=== PATIENT | female | born 1960 | race Caucasian/White ===

== ENCOUNTER 2017-04-01 09:55 | Outpatient (CLI) | payer BC, OTHER ==
--- NOTE | 2017-04-01 14:24 | MMO ---
BILATERAL SCREENING MAMMOGRAM: INDICATION: Annual exam. COMPARISON: Prior exam dated 11/13/14 and 12/24/15. FINDINGS: The interpretation of this exam was assisted with computer-aided detection. Breast parenchyma demonstrates scattered fibroglandular elements. There are benign-appearing calcifications within the right and left breast. No new suspicious mass, cluster of microcalcifications, or area of architectural distortion is eviden t. IMPRESSION: BI-RADS category 2 - benign. Recommend routine annual mammographic screening. POS: [facility]
== END 2017-04-01 09:56 | disposition home or self-care (01) ==
LOC: SCSMAMMO 09:55
PROVIDERS: ATTEND Family Medicine
DX: Z12.31 Encounter for screening mammogram for malignant neoplasm of breast (principal)
CPT/HCPCS: 77067; G0202

== ENCOUNTER 2017-09-26 13:57 | Outpatient (CLI) | payer BC, OTHER | END 2017-09-26 13:58 | disposition home or self-care (01) | LOC: CTENTCT 13:57 | PROVIDERS: ATTEND Otolaryngology Plastic Surgery within the Head & Neck | DX: J01.91 Acute recurrent sinusitis, unspecified (principal) | CPT/HCPCS: 70486 ==

== ENCOUNTER 2017-11-11 07:55 | Outpatient (CLI) | payer BC, OTHER ==
--- NOTE | 2017-11-11 10:24 | MRI ---
MRI OF THE RIGHT THUMB WITHOUT IV CONTRAST: INDICATION: Concern for UCL injury of the right thumb. Right thumb pain for 2 months; right thumb injury while l ifting a grandchild. FINDINGS: There is a full-thickness disruption of the proximal attachment of the thumb metacarpal phalangeal ul demar collateral ligament on image 4 of series 10. The UCL ligament appears to be in the expected posi tion just slightly proximal and subjacent to the adductor pollicis tendon. No osteochondral lesion i s evident. There is a mild subchondral cyst-like abnormality involving the base of the thumb metacar pal. The flexor and extensor tendons to the left thumb appear within normal limits. The thenar musc ulature appears within normal limits. IMPRESSION: Grade 3 sprain of the proximal attachment of the ulnar collateral ligament of the thumb metacarpal ph alangeal joint without evidence of displacement of the torn ligament. POS: [facility]
== END 2017-11-11 07:56 | disposition home or self-care (01) ==
LOC: SCSMRI 07:55
PROVIDERS: ATTEND Orthopaedic Surgery Hand Surgery
DX: S63.641A Sprain of metacarpophalangeal joint of right thumb, initial encounter (principal)

== ENCOUNTER → 2017-12-14 | Outpatient (CLI) | payer BC, OTHER ==
[2017-12-14 11:28] LABS: #Eosinphils 0.1 thou/uL (0.0-0.7); #Lymphocytes 1.9 thou/uL (1.20-3.40); #Monocytes 0.5 thou/uL (0.11-0.59); #Neutrophils 4.6 thou/uL (1.40-6.50); %Basophils 0.6 % (0.0-1.0); %Lymphocytes 26.4 % (21.0-51.0); %Monocytes 7.3 % (0.0-10.0); %Neutrophils 64.7 % (42.0-75.0); Hemoglobin 14.4 g/dL (12.0-16.0); Mean Corpuscular HGB CONC 34.2 g/dL (32.0-36.0); Mean Corpuscular Hemoglobin 31.8 pg (27.0-31.0); Platelet Count 206 thou/uL (130-400); RBC Distribution Width 10.7 % (11.5-14.5); Red Blood Cell (RBC) Count 4.53 mill/uL (4.20-5.40)
[2017-12-14 11:53] LABS: Anion Gap 8 mmol/L (10-20); BUN (Urea Nitrogen) 13 mg/dL (9.8-20.1); Calc. Creatinine Clearance 0 mL/min (70-130); Calcium 9.3 mg/dL (7.8-10.44); Carbon Dioxide 32 mmol/L (22-29); Chloride 101 mmol/L (98-107); Estimated GFR-MDRD 73; Glucose 107 mg/dL (70-105); Potassium 3.3 mmol/L (3.5-5.1); Sodium 138 mmol/L (136-145)
--- NOTE | 2017-12-16 15:07 | EKG ---
Test Reason : Blood Pressure : / mmHG Vent. Rate : 065 BPM Atrial Rate : 065 BPM P-R Int : 198 ms QRS Dur : 092 ms QT Int : 446 ms P-R-T Axes : 048 003 007 degrees QTc Int : 463 ms Normal sinus rhythm Low voltage QRS Nonspecific T wave abnormality Prolonged QT Abnormal ECG When compared with ECG of 06-OCT-2015 14:28, No significant change was found Confirmed by JEEVAN WELSH, DERRICK ([id number]) on 12/16/2017 3:07:24 PM Referred By: NANETTE Confirmed By:DERRICK CHEW MD
== END ==
LOC: LABBT 11:00
PROVIDERS: ATTEND Orthopaedic Surgery Hand Surgery
DX: Z01.818 Encounter for other preprocedural examination (principal); S63.641A Sprain of metacarpophalangeal joint of right thumb, initial encounter
CPT/HCPCS: 80048; 85025; 93005; 93010

== ENCOUNTER 2018-01-05 11:40 | Outpatient (CLI) | payer BC, OTHER ==
--- NOTE | 2018-01-05 12:20 | RAD ---
LUMBAR SPINE 4 VIEWS: HISTORY: M99.83, lumbar foraminal stenosis. COMPARISON: Lumbar spine radiograph 2016. FINDINGS: There is moderate levoscoliosis, progressive from the comparison examination. Moderate facet arthrop athy of L4-5 and L5-S1. No acute fracture or malalignment. No significant listhesis with flexion or extension. IMPRESSION: Progressive levoscoliosis. POS: [facility]
--- NOTE | 2018-01-05 13:07 | MRI ---
MRI LUMBAR SPINE WITHOUT CONTRAST: HISTORY: M99.83, lumbar foraminal stenosis. Low back pain. COMPARISON: Lumbar spine radiographs of the same day. FINDINGS: Aortic contour is nonaneurysmal. No retroperitoneal adenopathy is appreciated. Paraspinal musculatu re is symmetric. No hydronephrosis. No marrow infiltrative process. There is hemangioma in the L3 and L1 vertebral bodies. The conus medullaris terminates near the L1 vertebral body. The axial images are limited due to motion artifact. Levels are as follows: T12-L1: Circumferential disk bulge. No significant neural foraminal or spinal canal narrowing. L1-2: There is a central small disk-osteophyte complex with minimal effacement of the ventral CSF sp deny. The spinal canal is not significantly narrowed. No neural foraminal narrowing. L2-3: Small bilateral subforaminal posterior disk-osteophyte complexes, larger on the left. Mild fa cet arthropathy. There is moderate left-sided neural foraminal narrowing. No significant right-side d neural foraminal narrowing. The spinal canal is not significantly narrowed. L3-4: There is a broad-based posterior disk bulge with accompanying bilateral subforaminal posterior disk-osteophyte complexes, larger on the right. This causes moderate right and mild left-sided neur al foraminal narrowing. Abutment of the exiting right and traversing nerve roots. L4-5: Mild disk desiccation. Broad-based posterior disk-osteophyte complex predominantly within the central right paracentral lateral recess and subforaminal zones. This causes moderate right-sided n eural foraminal narrowing. Hypertrophic facet changes cause mild left-side neural foraminal narrowi ng. L5-S1: There is a circumferential disk bulge with superimposed central annular fissure. Posterior d isk-osteophyte complex on the left subforaminal and lateral recess with accompanying moderate to stefanie re arthropathy causes moderate to severe left-sided neural foraminal narrowing with abutment of the e xiting and traversing nerve roots. No significant right-sided neural foraminal narrowing. IMPRESSION: Moderate spondylosis as described above. POS: [facility]
== END 2018-01-05 11:41 | disposition home or self-care (01) ==
LOC: SCSMRI 11:40
PROVIDERS: ATTEND Specialist
DX: M99.83 Other biomechanical lesions of lumbar region (principal); M41.9 Scoliosis, unspecified; M51.26 Other intervertebral disc displacement, lumbar region; M51.27 Other intervertebral disc displacement, lumbosacral region; M47.896 Other spondylosis, lumbar region; M47.897 Other spondylosis, lumbosacral region
CPT/HCPCS: 72110; 72148

== ENCOUNTER 2018-01-27 09:06 | Day surgery (SDC) | payer BC, OTHER ==
[2018-01-26 09:08] VITALS: BMI 45.4
[2018-01-27] MEDS ORDERED: Bupivacaine HCl 0.5%/Epinephrine 1:200,000/PF 30 ml Vial ONE (09:47)
[2018-01-27] MEDS ORDERED: Betamet Acet/Betamet Na Ph 30 MG/5 ML VIAL ONE (09:56)
[2018-01-27] MEDS ORDERED: Bacitracin Zinc Ointment 30 gm TUBE ONE (09:56)
[2018-01-27] MEDS ORDERED: Bupivacaine PF 0.5% 30 ML VIAL ONE (09:56)
[2018-01-27] MEDS ORDERED: Midazolam HCl 2 mg/2 ml Vial ONE ×2 (10:08→10:35)
[2018-01-27] MEDS ORDERED: CEFAZOLIN/Water 2 GM/20 ML SYRINGE ONE (10:08)
[2018-01-27] MEDS ORDERED: Ondansetron HCl/PF 4 MG/2 ML Vial ONE (10:18)
[2018-01-27] MEDS ORDERED: Dexamethasone 20 MG/5 ML VIAL ONE (10:18)
[2018-01-27] MEDS ORDERED: Succinylcholine Chloride 20 MG/ML 10 ml SYRINGE FS ONE (10:18)
[2018-01-27] MEDS ORDERED: Lidocaine 1% PF 5 ML VIAL ONE (10:18)
[2018-01-27] MEDS ORDERED: PROPOFOL 200 MG/20 ML VIAL ONE (10:18)
[2018-01-27] MEDS ORDERED: Ketorolac Tromethamine 30 MG/ML VIAL ONE ×2 (10:18→13:13)
[2018-01-27] MEDS ORDERED: ePHEDrine/0.9% NaCl/PF SYRINGE 50 mg/10 ml ONE (10:18)
[2018-01-27 10:46] LABS: #Basophils 0.1 thou/uL (0.0-0.2); #Eosinphils 0.1 thou/uL (0.0-0.7); #Lymphocytes 1.9 thou/uL (1.20-3.40); #Monocytes 0.5 thou/uL (0.11-0.59); #Neutrophils 4.7 thou/uL (1.40-6.50); %Basophils 0.8 % (0.0-1.0); %Eosinophils 0.9 % (0.0-10.0); %Lymphocytes 26.4 % (21.0-51.0); %Monocytes 6.4 % (0.0-10.0); %Neutrophils 65.4 % (42.0-75.0); Hemoglobin 15.6 g/dL (12.0-16.0); Mean Corpuscular HGB CONC 33.8 g/dL (32.0-36.0); Mean Corpuscular Hemoglobin 31.5 pg (27.0-31.0); Mean Corpuscular Volume 93.3 fL (78.0-98.0); Mean Platelet Volume 8.9 fL (7.4-10.4); Platelet Count 231 thou/uL (130-400); RBC Distribution Width 11.1 % (11.5-14.5); Red Blood Cell (RBC) Count 4.95 mill/uL (4.20-5.40); White Blood Cell (WBC) Count 7.2 thou/uL (4.8-10.8)
[2018-01-27] MEDS ORDERED: Famotidine/PF 20 mg/2ml Vial ONE (10:56)
[2018-01-27] MEDS ORDERED: Fentanyl 100 MCG/2 ML VIAL ONE (10:56)
[2018-01-27 11:02] LABS: Anion Gap 13 mmol/L (10-20); BUN (Urea Nitrogen) 15 mg/dL (9.8-20.1); Calc. Creatinine Clearance 141 mL/min (70-130); Carbon Dioxide 29 mmol/L (22-29); Chloride 102 mmol/L (98-107); Estimated GFR-MDRD 64; Glucose 96 mg/dL (70-105); Potassium 3.7 mmol/L (3.5-5.1); Sodium 140 mmol/L (136-145)
--- NOTE | 2018-01-27 13:53 | RAD ---
RIGHT THUMB 4 VIEWS: INDICATION: Right thumb collateral ligament reconstruction. FINDINGS: Intraoperative fluoroscopic imaging for surgical purposes of the right thumb performed. Correlate wi th intraoperative findings for details as evaluation is limited on the provided views. K-wire overli es the 1st MCP joint and thee is an adjacent radiopaque anchor. Surgical needle overlies the dorsal aspect of the hand on one of the provided lateral views. IMPRESSION: Intraoperative imaging for surgical procedure of the right thumb. POS: [facility]
--- NOTE | 2018-01-31 10:04 | OP ---
DATE OF PROCEDURE: 01/27/2018 SURGEON: Zane Seo MD PREOPERATIVE DIAGNOSES: Left ulnar collateral ligament proximal tear of bone. FINDINGS: Indeed proximal to the tear. There was a complete attenuation with a 2-mm scar band makin g the tendon incompetent and it was stripped partially off of the bone proximally. It was no loss of continuity distally across the joint. No Stener lesion was seen. PROCEDURES PERFORMED OF THUMB: 1. Arthrotomy of the metacarpophalangeal joint. 2. Ulnar collateral reconstruction. 3. C-arm supervision with pinning of joint. 4. Left shortarm splint application. TOURNIQUET TIME: 65 minutes. BLOOD LOSS: 10 mL INJECTABLE: The patient had general with a block. There was excellent axillary block. DESCRIPTION OF PROCEDURE: After successful general LMA technique, the limb was prepped and draped. The patient had the limb exsanguinated. Time out was done. Appropriate tourniquet was inflated to 2 50 mmHg pressure. A lazy J incision was then made beginning in dorsal on the metacarpal head and nec k junction and then coursing approximately to the midline and mid lateral plane looking at the thumb from the ulnar aspect at the MP joint and distal. This was carried through the skin and subcutaneous tissue, visualized dorsal to the incision. The branches of the superficial ulnar nerve and protecte d them. Then, we gently released the retinaculum connecting the abductor to the extensor pollicis lo ngus tendon because there was no defect here. Underneath this and medially, we saw an area of white tissue about 2 mm in width throughout the entire area of the ulnar collateral ligament and this area was totally incompetent. It was approximately 5 mm proximal to the metacarpophalangeal opening/cauda l surface of the metacarpal neck. Distal to this, the insertion was intact and gave excellent tensio n, so we resected this area. We then elected to perform a [id number] repair, but first we took the distal portion and put in a trough in bone, that was approximately a 3-mm deep using a mini Mitek anchor. Then, this will coapt the distal portion into the bone at the proximal aspects of neck and before we tied it; however, we placed on both sides of it dorsal and palmar 2 [id number] sutures with the proximal stump being sutured exiting deep and the distal portion of the suture exiting supe rficial. We then placed him in the appropriate position and then, pinned the joint in 30 degrees of flexion with approximately 20 degrees of radial, and angular deformity to relax the repair. Th en, once the pin was in place, we sutured the repairs to maintain the reduction in the somewhat gait stability. We then cut the sutures to include anchor sutures. There was no loss of continuity. The patient had excellent repair. We obtained hemostasis. We closed the retinaculum connecting the extensor pollicis longus with the a bductor pollicis sheath using the appropriate suture. Then, the epidurals were approximated with 4-0 nylon in interrupted mattress pattern. Bulky dressing was applied just after the wire was cut and b ent with 2 mm protruding at a right-angle. C-arm confirmed good position. The patient left the oper ating room without evidence of anesthetic or operative complications.
== END 2018-01-27 15:45 | disposition home or self-care (01) ==
LOC: SDC 09:06
PROVIDERS: ATTEND Orthopaedic Surgery Hand Surgery
PROC: 0MQ70ZZ Repair Right Hand Bursa and Ligament, Open Approach (ICD-10-PCS; principal; 2018-01-27)
DX: S63.641A Sprain of metacarpophalangeal joint of right thumb, initial encounter (principal); F32.9 Major depressive disorder, single episode, unspecified; E78.5 Hyperlipidemia, unspecified; Z79.899 Other long term (current) drug therapy; Z88.5 Allergy status to narcotic agent; Z91.048 Other nonmedicinal substance allergy status
CPT/HCPCS: 76001; 80048; 85025; 96372; C1713; J0131; J0670; J0702; J1100; J1885; J2001; J2250; J2405; J2704; J3010; S0020; S0028

== ENCOUNTER 2018-06-22 10:13 | Outpatient (CLI) | payer BC, OTHER ==
--- NOTE | 2018-06-22 14:36 | MMO ---
BILATERAL SCREENING MAMMOGRAM: Date: 06/22/18 INDICATION: Annual exam. COMPARISON: Prior exam dated 04/01/17 and 12/24/15. FINDINGS: Interpretation of this exam was assisted with computer-aided detection. There are scattered fibroglandular elements bilaterally. There are benign-appearing calcifications bilaterally. No new suspicious mass, cluster of microcalcifications, or area of architectural distortion is eviden t. IMPRESSION: BIRADS 2: Benign Finding(s) Recommend routine annual mammographic screening. POS: [facility]
== END 2018-06-22 10:14 | disposition home or self-care (01) ==
LOC: SCSMAMMO 10:13
PROVIDERS: ATTEND Family Medicine
DX: Z12.31 Encounter for screening mammogram for malignant neoplasm of breast (principal)
CPT/HCPCS: 77067

== ENCOUNTER 2018-09-07 15:13 | Outpatient (CLI) | payer BC, OTHER ==
--- NOTE | 2018-09-07 15:31 | RAD ---
Exam: 4 views of the lumbosacral spine HISTORY: Low back pain COMPARISON: 01/05/2018 FINDINGS: 4 views of the lumbosacral spine shows normal height and alignment of the vertebral bodies and intervertebral discs without fracture or subluxation. Mild curvature of the lumbar spine is stable. Alignment is unchanged with flexion and extension. Small osteophytes are seen throughout the lumbar spine. The sacroiliac joints are unremarkable. IMPRESSION: Stable degenerative changes of the lumbar spine with unchanged alignment with bending
--- NOTE | 2018-09-07 16:08 | MRI ---
EXAM: Lumbar spine MRI without contrast. HISTORY: Spinal stenosis lumbar region low back pain with pain radiating down both legs COMPARISON: 01/05/2018 FINDINGS: Multiplanar, multisequence MRI examination of the lumbar spine is performed. The conus medullaris region appears unremarkable. No evidence for abnormal marrow signal. Disc osteophytosis at T11-T12 with some ventral thecal sac indention without cirilo cord compression. Bilateral renal T2 hyperintense foci evidence for cysts. Minimal right perirenal fluid density and sl ight fullness of the right upper renal collecting system. T12-L1 disc level: Disc osteophytosis with mild indention of the ventral thecal sac without significa nt stenosis. L1-L2 disc level: Mild central protrusion with moderate central thecal sac indention L2-L3 disc level: Mild lateral recess stenosis and bilateral foraminal stenosis. L3-L4 disc level: Moderate central canal, bilateral recess, and bilateral foraminal stenosis L4-L5 disc level: Central thecal sac compression and bilateral lateral recess stenosis worse on the l eft side, mild to moderate moderate bilateral foraminal stenosis. L5-S1 disc level: Central protrusion with annular fissure moderate bilateral foraminal stenosis worse on the left side. IMPRESSION: Multilevel variable severity canal, lateral recess, and foraminal stenosis as above.
== END 2018-09-07 15:14 | disposition home or self-care (01) ==
LOC: TBSIIMAG 15:13
PROVIDERS: ATTEND Physician Assistant Surgical
DX: M47.26 Other spondylosis with radiculopathy, lumbar region (principal); M48.061 Spinal stenosis, lumbar region without neurogenic claudication; M54.5 Low back pain
CPT/HCPCS: 72110; 72148

== ENCOUNTER 2018-10-17 09:16 | Outpatient (CLI) | payer BC, OTHER ==
[2018-10-17 11:31] LABS: PTT 31.2 SEC (22.9-36.1); Prothrombin Time 12.9 SEC (12.0-14.7)
[2018-10-17 11:43] LABS: Hemoglobin 14.2 g/dL (12.0-16.0); Mean Corpuscular HGB CONC 33.4 g/dL (32.0-36.0); Mean Corpuscular Hemoglobin 31.2 pg (27.0-31.0); Mean Corpuscular Volume 93.4 fL (78.0-98.0); Mean Platelet Volume 9.9 fL (7.4-10.4); Platelet Count 216 thou/uL (130-400); RBC Distribution Width 11.6 % (11.5-14.5); Red Blood Cell (RBC) Count 4.56 mill/uL (4.20-5.40); White Blood Cell (WBC) Count 6.3 thou/uL (4.8-10.8)
[2018-10-17 11:53] LABS: Anion Gap 11 mmol/L (10-20); BUN (Urea Nitrogen) 9 mg/dL (9.8-20.1); Calc. Creatinine Clearance 0 mL/min (70-130); Calcium 10.2 mg/dL (7.8-10.44); Carbon Dioxide 30 mmol/L (22-29); Chloride 100 mmol/L (98-107); Estimated GFR-MDRD 73; Glucose 72 mg/dL (70-105); Potassium 3.2 mmol/L (3.5-5.1); Sodium 138 mmol/L (136-145)
== END 2018-10-17 09:17 | disposition home or self-care (01) ==
LOC: LABBT 09:16
PROVIDERS: ATTEND Surgery
DX: Z01.818 Encounter for other preprocedural examination (principal); M48.061 Spinal stenosis, lumbar region without neurogenic claudication; M54.16 Radiculopathy, lumbar region
CPT/HCPCS: 80048; 85027; 85610; 85730; 93005; 93010

== ENCOUNTER 2018-10-27 05:36 | Day surgery (SDC) | payer BC, OTHER ==
[2018-10-27] MEDS ORDERED: Thrombin 5000 UNITS/5 ML VIAL ONE (06:26)
[2018-10-27] MEDS ORDERED: Sodium Chloride 0.9% 10 ML ONE (06:26)
[2018-10-27] MEDS ORDERED: Midazolam HCl 2 mg/2 ml Vial ONE (06:53)
[2018-10-27] MEDS ORDERED: HYDROmorphone 2 MG/ML VIAL ONE ×2 (06:53→10:49)
[2018-10-27] MEDS ORDERED: Mag-Al 1200 mg/1200 mg/30 ML UDCUP PO PRN (10:08)
[2018-10-27] MEDS ORDERED: Ondansetron PF 4 MG/2 ML Vial IVP PRN (10:08)
[2018-10-27] MEDS ORDERED: Milk Of Magnesia 30 ML UDCUP PO PRN (10:08)
[2018-10-27] MEDS ORDERED: tiZANidine HCl 4 MG TAB PO PRN (10:08)
[2018-10-27] MEDS ORDERED: Meperidine HCl/PF 25 MG/ML VIAL SLOW IVP PRN ×2 (10:08→10:28)
[2018-10-27] MEDS ORDERED: Bisacodyl 10 MG SUPP PR PRN (10:08)
[2018-10-27] MEDS ORDERED: Acetaminophen 325 MG TAB PO PRN (10:08)
[2018-10-27] MEDS ORDERED: traMADol HCl 50 MG TAB PO PRN (10:08)
[2018-10-27] MEDS ORDERED: ALPRAZolam 0.5 MG TAB PO PRN (10:12)
[2018-10-27] MEDS ORDERED: diphenhydrAMINE 25 MG CAP PO PRN (10:13)
[2018-10-27] MEDS ORDERED: HYDROmorphone 2 MG/ML VIAL SLOW IVP PRN (10:28)
[2018-10-27] MEDS ORDERED: Promethazine HCl 25 MG/ML VIAL SLOW IVP PRN (10:28)
[2018-10-27] MEDS ORDERED: Ondansetron HCl/PF 4 MG/2 ML Vial IVP PRN (10:28)
[2018-10-27] MEDS ORDERED: Promethazine HCl 25 MG/ML VIAL IM PRN (10:28)
--- NOTE | 2018-10-27 11:32 | OP ---
DATE OF PROCEDURE: 10/27/2018 LOCATION: OR 12. WOUND CLASSIFICATION: Type 1 wound. [employer]: Jian Martinez PA-C. PREPROCEDURE DIAGNOSIS: Right L4, right L5 radiculopathy with L3-L4 disk extrusion. POSTPROCEDURE DIAGNOSIS: Right L4, right L5 radiculopathy with L3-L4 disk extrusion. PROCEDURES PERFORMED: 1. Right L3-L4, right L4-L5 hemilaminotomies, foraminotomies with right L3-L4 diskectomy. 2. Use of operative microscope for microdissection. DESCRIPTION OF PROCEDURE: After informed consent was obtained from the patient, the patient was brought to the OR. Proper patient, pause, and identification were carried out. She was placed under excellent general endotracheal anesthesia and positioned prone on the OR table. All appropriate points were padded. We identified a dorsal spine jean that would allow for approach to the L3, L4, and L5 segment. A linear jean was made. This region was sterilely cleansed, prepared, and draped. Proper patient, pause, and identification were carried out. The wound was then opened with a combination of sharp, monopolar, and blunt dissection. The L3, L4, and L5 dorsal spines and right side of the gilles-lamina were exposed. Localization film confirmed area of interest. We then performed with microscope. Right L3-L4, right L4-L5 hemilaminotomy and foraminotomies with right L3-L4 diskectomy with excellent decompression of right L3, right L4, and right L5 nerve roots. Copious irrigation occurred throughout as did maximizing hemostasis. The wound was closed in anatomic layers following sprinkling of vancomycin powder. The patient emerged from anesthesia. Job ID: [id number]
[2018-10-27 11:33] VITALS: BMI 43.0
[2018-10-27] MEDS ORDERED: Fleet Enema 133 ML BOT PR PRN (12:00)
[2018-10-27] MEDS: HYDROcodone/Acetaminophen 7.5/325 mg Tablet PO PRN ×2 (12:24→18:33)
[2018-10-27] MEDS ORDERED: Acetaminophen/Codeine 30-300mg Tablet PO PRN (12:26)
[2018-10-27] MEDS: Sodium Chloride 0.9% 1,000 ML IV SCH ×2 (12:29→23:50)
[2018-10-27] MEDS: CEFAZOLIN 2 GM in Premix Bag 1 BAG IVPB SCH ×2 (14:24→22:01)
[2018-10-27] MEDS ORDERED: Ketorolac Tromethamine 30 MG/ML VIAL ONE (15:14)
[2018-10-27] MEDS ORDERED: PROPOFOL 200 MG/20 ML VIAL ONE (15:14)
[2018-10-27] MEDS ORDERED: Rocuronium Bromide 10 MG/ML (10ML VIAL) ONE (15:14)
[2018-10-27] MEDS ORDERED: Dexamethasone 20 MG/5 ML VIAL ONE (15:14)
[2018-10-27] MEDS ORDERED: Lidocaine 1% PF 5 ML VIAL ONE (15:14)
[2018-10-27] MEDS ORDERED: Glycopyrrolate 0.2 MG/ML 5 ML SYRINGE ONE (15:14)
[2018-10-27] MEDS ORDERED: Ondansetron PF 4 MG/2 ML Vial ONE (15:14)
[2018-10-27] MEDS ORDERED: Loratadine 10 MG TAB PO PRN (21:00)
[2018-10-27] MEDS ORDERED: Escitalopram Oxalate 10 mg Tablet PO SCH (21:00)
[2018-10-27] MEDS ORDERED: Ezetimibe 10 MG TAB PO SCH (21:00)
[2018-10-27] MEDS: Gabapentin 300 MG CAP PO SCH (21:02)
[2018-10-28] MEDS: HYDROcodone/Acetaminophen 7.5/325 mg Tablet PO PRN (08:16)
[2018-10-28] MEDS: Gabapentin 300 MG CAP PO SCH (08:16)
[2018-10-28] MEDS: Sodium Chloride 0.9% 1,000 ML IV SCH (08:18)
[2018-10-28] MEDS ORDERED: Losartan 25 MG TAB PO SCH (09:00)
[2018-10-28] MEDS ORDERED: Hydrochlorothiazide 25 MG TAB PO SCH (09:00)
[2018-10-28] MEDS ORDERED: LIRAGLUTIDE SC SCH (09:00)
[2018-10-28 11:30] VITALS: BP 155/83; TEMP 98.1
--- NOTE | 2018-10-30 07:38 | DIS ---
DATE OF ADMISSION: 10/27/2018 DATE OF DISCHARGE: 10/28/2018 Ms. Lombardi is postoperative day 1 following lumbar decompression with Dr. Ferguson. She is doing very well and has been ambulating in the hallways and is ready for discharge. She has minimal pain issues. No complications during hospital stay. We will see her in 2 weeks in the outpatient setting. Job ID: [id number]
== END 2018-10-28 11:50 | disposition home or self-care (01) ==
LOC: SDC 05:36 → SURG B 10:08 → SDC 10-28 11:50
PROVIDERS: ATTEND Surgery
PROC: 0SB20ZZ Excision of Lumbar Vertebral Disc, Open Approach (ICD-10-PCS; principal; 2018-10-28)
DX: M51.16 Intervertebral disc disorders with radiculopathy, lumbar region (principal); E66.9 Obesity, unspecified; Z98.890 Other specified postprocedural states; Z68.41 Body mass index [BMI] 40.0-44.9, adult; Z91.048 Other nonmedicinal substance allergy status; Z88.8 Allergy status to other drugs, medicaments and biological substances; Z88.5 Allergy status to narcotic agent; Z79.899 Other long term (current) drug therapy
CPT/HCPCS: 76000; J0690; J1100; J1170; J1885; J2001; J2250; J2405; J2704; J3370; J3490

== ENCOUNTER 2018-12-06 15:56 | Outpatient (CLI) | payer BC, OTHER ==
--- NOTE | 2018-12-06 13:32 | HP ---
HISTORY OF PRESENT ILLNESS: Ms. Leta Lombardi is a very pleasant 58-year-old, who presents to the Wound Center for evaluation of a nonhealing surgical wound of the lower back subsequent to lumbar decompression by Dr. Ferguson on 10/27/2018. The patient states that 1-1/2 weeks after surgery, her daughter viewed the wound. She states that she was placed on Keflex, and 3 to 4 days later, seen by Neurosurgery. At a followup visit 1 week ago, the patient was referred to the Wound Center for further evaluation and treatment. The patient states that she has been on Keflex since 11/12/2018. She states that this is her third course of Keflex. PAST MEDICAL HISTORY: Hypertension. PAST SURGICAL HISTORY: 1. Lumbar decompression. 2. Right hand surgery. 3. ACD fusion, C5 to C7. 4. Tonsillectomy. 5. Tubal ligation. 6. x3. 7. Appendectomy. MEDICATIONS: 1. Keflex. 2. Saxenda. 3. Lexapro. 4. Losartan. 5. Hydrochlorothiazide. 6. Zetia. 7. Tylenol No. 4. 8. Tizanidine. 9. Gabapentin. 10. Alprazolam. 11. Multivitamin. ALLERGIES: ADHESIVE, LATEX, FENTANYL, MORPHINE, BUPRENORPHINE. SOCIAL HISTORY: Social history is negative for tobacco use. Social history is also negative for EtOH use. FAMILY HISTORY: Family history is negative for diabetes mellitus or coronary artery disease. PHYSICAL EXAMINATION: VITAL SIGNS: Temperature 98.0, pulse 83, respirations 16, and blood pressure 134/68. GENERAL: A 58-year-old female sitting on table in examination room, in no acute distress. HEENT: Normocephalic and atraumatic. NECK: No nuchal rigidity. CHEST: Clear to auscultation. CV: Regular rate and rhythm. ABDOMEN: Soft. EXTREMITIES: No clubbing or cyanosis. NEURO: Grossly nonfocal. BACK: A nonhealing surgical wound of the lower back is present, which measures approximately 5.9 x 1.5 cm. Granulation tissue is present within the wound margins. Necrotic and nonviable tissue present within the wound margins are debrided with an excisional full-thickness debridement with the use of scissors. No purulent drainage is associated with the wound. No cellulitis of the lower back is appreciated. No maceration of the skin of the periwound is noted. ASSESSMENT AND PLAN: 1. Nonhealing surgical wound of lower back subsequent to lumbar decompression on 10/27/[address] Parveen Ferguson. Dressing changes of Medihoney alginate followed by Mepilex border will be initiated today. These dressing changes are to be performed 3 times per week after cleansing and irrigation with the assistance of the patient's spouse. The patient is to continue p.o. antibiotics as previously prescribed. I will see Ms. Lombardi again in 2 weeks. Arrangements will be made for the home delivery of dressing supplies. The patient understands and is in agreement with the preceding treatment plan. 2. Hypertension. Job ID: [id number]
[~2018-12-06 15:56] MED LIST: Lidocaine 2% PF 100 mg/5 ml Syringe ONE; Sodium Chloride 0.9% 15 ML NEB ONE
== END 2018-12-06 15:57 | disposition home or self-care (01) ==
LOC: WCC 15:56
PROVIDERS: ATTEND Family Medicine
DX: T81.89XD Other complications of procedures, not elsewhere classified, subsequent encounter (principal); I10 Essential (primary) hypertension
CPT/HCPCS: A4218; J2001

== ENCOUNTER 2018-12-20 09:37 | Outpatient (CLI) | payer BC, OTHER ==
[~2018-12-20 09:37] MED LIST changes: +Lidocaine 2% 11 ML SYR ONE; -Lidocaine 2% PF 100 mg/5 ml Syringe ONE
--- NOTE | 2018-12-20 09:37 | PRG ---
DATE OF SERVICE: 12/20/2018 HISTORY: Ms. Leta Lombardi is a very pleasant 58-year-old, who presents to the Wound Center for evaluation of nonhealing surgical wound of the lower back subsequent to lumbar decompression by Dr. Freguson on 10/27/2018. The patient previously stated that 1-1/2 weeks after surgery her daughter viewed the wound. She stated that she was placed on Keflex and 3 to 4 days later seen by Neurosurgery. At a followup visit, 1 week prior to the patient's initial presentation to the Wound Center, the patient was referred to the Wound Center for further evaluation and treatment. At the time of the patient's initial visit to the Wound Center, the patient stated that she had been taking Keflex since 11/12/2018. Today, the patient states that she was recently placed on another course of Keflex by Neurosurgery. PHYSICAL EXAMINATION: VITAL SIGNS: Temperature 97.9, pulse 92, respirations 20, blood pressure 136/65. BACK: A nonhealing surgical wound of the lower back is present, which measures approximately 4.5 x 1.4 cm. The dimensions of the wound at the time of the patient's visit on 12/06/2018 were approximately 5.9 x 1.5 cm. Granulation tissue is present within the wound margins. Necrotic and nonviable tissue present within the wound margins are debrided with an excisional full-thickness debridement with the use of scissors. No purulent drainage is associated with the wound. No erythema of the skin surrounding the wound is present. No maceration of the skin of the periwound is noted. ASSESSMENT AND PLAN: 1. Nonhealing surgical wound of lower back subsequent to lumbar decompression on 10/27/[address] Parveen Ferguson. Dressing changes of Medihoney alginate followed by Mepilex Border will be continued 3 times per week after cleansing and irrigation with the assistance of the patient's spouse. As stated above, the patient was recently placed on another course of Keflex by Neurosurgery. The patient states she will be leaving on a cruise in 1 week. I will see Ms. Lombardi again after she returns to the [facility] area. 2. Hypertension. Job ID: [id number]
== END 2018-12-20 09:38 | disposition home or self-care (01) ==
LOC: WCC 09:37
PROVIDERS: ATTEND Family Medicine
DX: T81.89XD Other complications of procedures, not elsewhere classified, subsequent encounter (principal); I10 Essential (primary) hypertension
CPT/HCPCS: A4218

== ENCOUNTER 2019-01-08 14:40 | Outpatient (CLI) | payer BC, OTHER ==
[2019-01-08] MEDS ORDERED: Sodium Chloride 0.9% 15 ML NEB ONE (15:00)
--- NOTE | 2019-01-08 15:29 | PRG ---
DATE OF SERVICE: 01/08/2019 HISTORY: Ms. Leta Lombardi is a very pleasant 58-year-old, who presents to the Wound Center for evaluation of a nonhealing surgical wound of the lower back subsequent to lumbar decompression by Dr. Ferguson on 10/27/2018. The patient previously stated that 1.5 weeks after surgery, her daughter viewed the wound. She stated that she was placed on Keflex and 3 to 4 days later seen by Neurosurgery. At a followup visit 1 week prior to the patient's initial presentation to the Wound Center, the patient was referred to the Wound Center for further evaluation and treatment. At the time of the patient's initial visit to the Wound Center, the patient stated that she had been taking Keflex since 11/12/2018. At the time of the patient's visit on 12/20/2018, the patient stated that she had been recently placed on another course of Keflex by Neurosurgery. PHYSICAL EXAMINATION: VITAL SIGNS: Temperature 97.9, pulse 82, respirations 19, and blood pressure 142/65. BACK: A nonhealing surgical wound of the lower back is present, which measures approximately 4.3 x 1.0 cm. The dimensions of the wound at the time of the patient's visit on 12/20/2018 were approximately 4.5 x 1.4 cm. Granulation tissue is present within the wound margins. Necrotic and nonviable tissue present within the wound margins was debrided with an excisional full-thickness debridement. No purulent drainage is associated with the wound. No erythema of the skin surrounding the wound is present. No maceration of the skin of the periwound is noted. ASSESSMENT AND PLAN: 1. Nonhealing surgical wound of lower back subsequent to lumbar decompression on 10/27/[address] Parveen Ferguson. Dressing changes of Santyl will be initiated today. These dressing changes are to be performed on a daily basis after cleansing and irrigation with the assistance of the patient's spouse. The patient states she will be seen by Neurosurgery in 1 week. I will see Ms. Lombardi again in 2 weeks. 2. Hypertension. Job ID: [id number]
== END 2019-01-08 14:41 | disposition home or self-care (01) ==
LOC: WCC 14:40
PROVIDERS: ATTEND Family Medicine
DX: T81.89XD Other complications of procedures, not elsewhere classified, subsequent encounter (principal); I10 Essential (primary) hypertension
CPT/HCPCS: A4218

== ENCOUNTER 2019-01-22 14:24 | Outpatient (CLI) | payer BC, OTHER ==
--- NOTE | 2019-01-22 15:27 | PRG ---
DATE OF SERVICE: 01/22/2019 HISTORY: Ms. Leta Lombardi is a very pleasant 58-year-old, who presents to the wound center for evaluation of a nonhealing surgical wound of the lower back subsequent to lumbar decompression by Dr. Ferguson on 10/27/2018. The patient previously stated that one and half weeks after surgery, her daughter viewed the wound. She stated that she was placed on Keflex and 3 to 4 days later seen by Neurosurgery. At a followup visit 1 week prior to the patient's initial presentation to the wound center, the patient was referred to the wound center for further evaluation and treatment. At the time of the patient's initial visit to the wound center, the patient stated that she had been taking Keflex since 11/12/2018. At the time of the patient's visit on 12/20/2018, the patient stated that she had been recently placed on another course of Keflex by Neurosurgery. PHYSICAL EXAMINATION: VITAL SIGNS: Temperature 98.1, pulse 74, respirations 16, and blood pressure 116/58. BACK: A nonhealing surgical wound of the lower back is present, which measures approximately 2.1 x 0.4 cm. The dimensions of the wound at the time of the patient's visit on 01/08/2019 were approximately 4.3 x 1.0 cm. Granulation tissue was present within the wound margins. Necrotic and nonviable tissue present within the wound margins were debrided with an excisional full-thickness debridement. No purulent drainage is associated with the wound. No erythema of the skin surrounding the wound is present. No maceration of the skin of the periwound is noted. ASSESSMENT AND PLAN: 1. Nonhealing surgical wound of lower back subsequent to lumbar decompression on 10/27/[address] Parveen Ferguson. Dressing changes of Santyl will be continued on a daily basis after cleansing and irrigation with the assistance of the patient's spouse. The patient states that she has a followup appointment with Neurosurgery in 4 weeks. I will see Ms. Lombardi again in 2 weeks if her wound is still present at this time. 2. Hypertension. Job ID: [id number]
[2019-01-22] MEDS ORDERED: Sodium Chloride 0.9% 15 ML NEB ONE (17:08)
== END 2019-01-22 14:25 | disposition home or self-care (01) ==
LOC: WCC 14:24
PROVIDERS: ATTEND Family Medicine
DX: T81.89XD Other complications of procedures, not elsewhere classified, subsequent encounter (principal); I10 Essential (primary) hypertension
CPT/HCPCS: 11042; A4218

== ENCOUNTER 2019-02-05 14:29 | Outpatient (CLI) | payer BC, OTHER ==
--- NOTE | 2019-02-05 14:45 | PRG ---
DATE OF SERVICE: 02/05/2019 HISTORY: Ms. Leta Lombardi is a very pleasant 58-year-old, who presents to the wound center for evaluation of a nonhealing surgical wound of the lower back subsequent to lumbar decompression by Dr. Ferguson on 10/27/2018. The patient previously stated that one and half weeks after surgery, her daughter viewed the wound. She stated that she was placed on Keflex and 3 to 4 days later seen by Neurosurgery. At a followup visit 1 week prior to the patient's initial presentation to the wound center, the patient was referred to the wound center for further evaluation and treatment. At the time of the patient's initial visit to the wound center, the patient stated that she had been taking Keflex since 11/12/2018. At the time of the patient's visit on 12/20/2018, the patient stated that she had been recently placed on another course of Keflex by Neurosurgery. PHYSICAL EXAMINATION: VITAL SIGNS: Temperature 97.8, pulse 78, respirations 16, and blood pressure 124/70. BACK: The wound of the lower back in the midline has healed completely. ASSESSMENT AND PLAN: 1. Nonhealing surgical wound of lower back subsequent to lumbar decompression on 10/27/[address] Parveen Ferguson. As stated above, the wound has completely healed. Dressing changes of Santyl will be discontinued. Ms. Lombardi will be discharged from clinic today with followup on a p.r.n. basis. 2. Hypertension. Job ID: [id number]
[2019-02-05] MEDS ORDERED: Sodium Chloride 0.9% 15 ML NEB ONE (18:00)
== END 2019-02-05 14:30 | disposition home or self-care (01) ==
LOC: WCC 14:29
PROVIDERS: ATTEND Family Medicine
DX: T81.89XD Other complications of procedures, not elsewhere classified, subsequent encounter (principal); I10 Essential (primary) hypertension
CPT/HCPCS: 97602; A4218

== ENCOUNTER 2020-07-24 10:48 | Outpatient (CLI) | payer BC, OTHER | END 2020-07-24 10:49 | disposition home or self-care (01) | LOC: BICRAD 10:48 | PROVIDERS: ATTEND Nurse Practitioner Family | DX: M25.511 Pain in right shoulder (principal); M54.12 Radiculopathy, cervical region; Z98.1 Arthrodesis status | CPT/HCPCS: 72040 ==

== ENCOUNTER 2022-05-20 08:04 | Outpatient (CLI) | payer BC, OTHER | END 2022-05-20 08:05 | disposition home or self-care (01) | LOC: SCSMRI 08:04 | PROVIDERS: ATTEND Nurse Practitioner Family | DX: M47.816 Spondylosis without myelopathy or radiculopathy, lumbar region (principal); M48.061 Spinal stenosis, lumbar region without neurogenic claudication; M47.817 Spondylosis without myelopathy or radiculopathy, lumbosacral region; M47.815 Spondylosis without myelopathy or radiculopathy, thoracolumbar region; Z98.890 Other specified postprocedural states | CPT/HCPCS: 72148 ==

== ENCOUNTER 2022-10-08 12:20 | Outpatient (CLI) | payer BC, OTHER ==
[2022-10-08 14:29] LABS: Hemoglobin 13.3 g/dL (12.0-15.5); Mean Corpuscular HGB CONC 32.9 g/dL (32.0-36.0); Mean Corpuscular Hemoglobin 29.3 pg (27.0-33.0); Mean Platelet Volume 11.6 fl (7.4-10.4); Platelet Count 317 10x3/uL (150-450); RBC Distribution Width 12.7 % (11.5-14.5); Red Blood Cell (RBC) Count 4.54 10x6/uL (3.90-5.03); White Blood Cell (WBC) Count 8.6 10x3/uL (3.5-10.5)
[2022-10-08 14:37] LABS: Anion Gap 16 mmol/L (10-20); BUN (Urea Nitrogen) 10 mg/dL (9.8-20.1); Calc. Creatinine Clearance 0 mL/min (70-130); Calcium 9.9 mg/dL (7.8-10.44); Carbon Dioxide 25 mmol/L (23-31); Chloride 102 mmol/L (98-107); Estimated GFR 82; Glucose 74 mg/dL (80-115); INR-International Normal Ratio 0.9; PTT 27.3 sec (22.0-33.0); Potassium 3.8 mmol/L (3.5-5.1); Sodium 139 mmol/L (136-145)
== END 2022-10-08 12:21 | disposition home or self-care (01) ==
LOC: LABBT 12:20
PROVIDERS: ATTEND Surgery
DX: Z01.818 Encounter for other preprocedural examination (principal); M51.16 Intervertebral disc disorders with radiculopathy, lumbar region
CPT/HCPCS: 80048; 85027; 85610; 85730; 93005; 93010

== ENCOUNTER 2022-10-12 06:10 | Observation (INO) | payer BC, OTHER ==
[2022-10-12] MEDS ORDERED: Thrombin 5000 UNITS/5 ML VIAL ONE (06:31)
[2022-10-12] MEDS ORDERED: Vancomycin 1 GM VIAL ONE (06:31)
[2022-10-12] MEDS ORDERED: fentaNYL PF 100 MCG/2 ML SYRINGE ONE (06:50)
[2022-10-12] MEDS ORDERED: CEFAZOLIN 2 GM VIAL ONE (07:20)
[2022-10-12] MEDS ORDERED: Sodium Chloride 0.9% 100 ML ONE (07:20)
[2022-10-12] MEDS ORDERED: PROPOFOL 200 MG/20 ML VIAL ONE (07:40)
[2022-10-12] MEDS ORDERED: Dexamethasone 20 MG/5 ML VIAL ONE (07:40)
[2022-10-12] MEDS ORDERED: Ketorolac Tromethamine 30 MG/ML VIAL ONE (07:40)
[2022-10-12] MEDS ORDERED: Lidocaine 1% PF 5 ML VIAL ONE (07:40)
[2022-10-12] MEDS ORDERED: Vecuronium 10 MG VIAL ONE (07:40)
[2022-10-12] MEDS ORDERED: Ondansetron PF 4 MG/2 ML Vial ONE (07:40)
[2022-10-12] MEDS ORDERED: fentaNYL 50 mcg/mL 1 mL Vial ONE ×2 (09:30→14:07)
[2022-10-12] MEDS ORDERED: Acetaminophen 325 MG TAB PO PRN (09:30)
[2022-10-12] MEDS ORDERED: Ondansetron PF 4 MG/2 ML Vial IVP PRN (09:30)
[2022-10-12] MEDS ORDERED: traMADol HCl 50 MG TAB PO PRN ×2 (09:30)
[2022-10-12] MEDS ORDERED: HYDROcodone/Acetaminophen 7.5/325 mg Tablet PO PRN (09:30)
[2022-10-12] MEDS ORDERED: Acetaminophen/Codeine 30-300mg Tablet PO PRN (09:30)
[2022-10-12] MEDS ORDERED: diphenhydrAMINE 25 MG CAP PO PRN (09:30)
[2022-10-12] MEDS ORDERED: tiZANidine HCl 4 MG TAB PO PRN (09:33)
[2022-10-12] MEDS ORDERED: ALPRAZolam 0.5 MG TAB PO PRN (09:33)
[2022-10-12] MEDS ORDERED: hydrALAZINE 20 MG/ML VIAL SLOW IVP PRN (09:34)
[2022-10-12] MEDS ORDERED: HYDROmorphone 0.5 MG/0.5 ML SYRINGE ONE ×4 (09:46→11:24)
[2022-10-12] MEDS ORDERED: Non-Formulary Medication 1 EACH PO PRN (10:09)
[2022-10-12] MEDS ORDERED: Ondansetron HCl/PF 4 MG/2 ML Vial IVP PRN (10:15)
[2022-10-12] MEDS ORDERED: HYDROmorphone 2 MG/ML VIAL SLOW IVP PRN (10:15)
[2022-10-12] MEDS ORDERED: Promethazine HCl 25 MG/ML VIAL IM/IV PRN (10:15)
[2022-10-12] MEDS ORDERED: Loratadine 10 MG TAB PO PRN (10:46)
[2022-10-12 16:13] VITALS: BMI 40.5
[2022-10-12] MEDS: Gabapentin 300 MG CAP PO SCH ×2 (16:13→20:30)
[2022-10-12] MEDS: Sodium Chloride 0.9% 1,000 ML IV SCH (16:13)
[2022-10-12] MEDS: CEFAZOLIN 2 GM in Sodium Chloride 0.9% 100 ML IVPB SCH ×2 (16:14→23:00)
[2022-10-12] MEDS: Ketorolac Tromethamine 30 MG/ML VIAL IVP PRN (20:35)
[2022-10-12] MEDS ORDERED: FLUoxetine HCl 20 MG CAP PO SCH (21:00)
[2022-10-12] MEDS ORDERED: Ezetimibe 10 MG TAB PO SCH (21:00)
[2022-10-13] MEDS: Sodium Chloride 0.9% 1,000 ML IV SCH ×2 (00:18→11:13)
[2022-10-13] MEDS: Ketorolac Tromethamine 30 MG/ML VIAL IVP PRN (07:06)
[2022-10-13 07:45] VITALS: TEMP 98.5
[2022-10-13] MEDS: Gabapentin 300 MG CAP PO SCH (08:21)
[2022-10-13] MEDS ORDERED: LIRAGLUTIDE SC SCH (09:00)
[2022-10-13] MEDS ORDERED: Hydrochlorothiazide 25 MG TAB PO SCH (09:00)
[2022-10-13] MEDS ORDERED: Losartan 25 MG TAB PO SCH (09:00)
[2022-10-13 11:19] VITALS: BP 130/75
== END 2022-10-13 11:42 | disposition home or self-care (01) ==
LOC: SDC 06:10 → T4-B 15:04
PROVIDERS: ADMIT Surgery; ATTEND Surgery
PROC: 00NY0ZZ Release Lumbar Spinal Cord, Open Approach (ICD-10-PCS; principal; 2022-10-13)
PROC: 0SB20ZZ Excision of Lumbar Vertebral Disc, Open Approach (ICD-10-PCS; 2022-10-13)
DX: M51.16 Intervertebral disc disorders with radiculopathy, lumbar region (principal); Z88.5 Allergy status to narcotic agent; Z88.8 Allergy status to other drugs, medicaments and biological substances; Z91.048 Other nonmedicinal substance allergy status; Z79.899 Other long term (current) drug therapy
CPT/HCPCS: 96374; 96375; 96376; G0378; J1100; J1170; J1885; J2405; J2704; J3010; J3370; J3490; J7050

== ENCOUNTER 2023-09-21 13:18 | Outpatient (CLI) | payer BC, OTHER | END 2023-09-21 13:19 | disposition home or self-care (01) | LOC: SCSRAD 13:18 | PROVIDERS: ATTEND Family Medicine | DX: S49.92XA Unspecified injury of left shoulder and upper arm, initial encounter (principal); S42.232A 3-part fracture of surgical neck of left humerus, initial encounter for closed fracture ==